=== PATIENT | female | born 1985 | race Caucasian/White ===

== ENCOUNTER 2017-04-04 07:34 | Inpatient (IN) | payer OTHER ==
[2017-04-04] MEDS ORDERED: Penicillin G Potassium IV* 5,000,000 UNITS in NS 0.9% 100 ML* 100 ML IVPB ONE (08:44)
[2017-04-04] MEDS ORDERED: Oxytocin in LR* 20 UNITS/1,000 ML BAG IVPB SCH ×2 (09:00→22:00)
[2017-04-04] MEDS ORDERED: Buffered Lidocaine 0.9% SYRIN* 5 ML/SYR SYRINGE ONE (09:24)
[2017-04-04] MEDS ORDERED: Calcium Carbonate CHEW TAB* 500 MG (TUMS) PO PRN (09:37)
[2017-04-04 10:17] LABS: Hematocrit 37 % (35-47); Hemoglobin 12.7 g/dl (12.0-16.0); Mean Corpuscular HGB Conc 35 g/dl (31-36); Mean Corpuscular Hemoglobin 32 pg (27-31); Mean Corpuscular Volume 93 fL (80-97); Mean Platelet Volume 9 um3 (7.4-10.4); Platelet Count 254 10^3/ul (150-450); Red Blood Count 3.93 10^6/ul (4.0-5.4); Red Cell Distribution Width 15 % (10.5-15); White Blood Count 10.5 10^3/ul (3.5-10.8)
[2017-04-04 10:53] LABS: ABS Basophils 0.1 10^3/ul (0-0.2); ABS Eosinophils 0.1 10^3/ul (0-0.6); ABS Monocytes 0.9 10^3/ul (0-0.8); ABS Neutrophils 7.6 10^3/ul (1.5-7.7); ABS Nucleated RBC 0 10^3/ul; Eosinophil % 0.5 % (0-6); Lymphocyte % 18.7 % (25-47); Nucleated Red Blood Cells % 0.1
[2017-04-04] MEDS: Penicillin G Potassium IV* 2,500,000 UNITS in NS 0.9% 100 ML* 100 ML IVPB SCH ×3 (11:18→18:02)
[2017-04-04] MEDS ORDERED: OBEPIDURAL* 250 ML EPIDURAL ONE (20:07)
[2017-04-04] MEDS ORDERED: Phenylephrine IV* 40 MCG/ML 10 ML SYRINGE IV PUSH PRN ×2 (20:43)
[2017-04-04] MEDS ORDERED: Sodium Citrate/Citric Acid* 15 ML UDC PO PRN (20:43)
[2017-04-04] MEDS ORDERED: OBEPIDURAL* 250 ML EPIDURAL SCH (21:00)
[2017-04-04] MEDS: Methylergonovine INJ* 0.2 MG/ML 1ML AMP IM ONE ×2 (21:44→22:37)
[2017-04-04] MEDS ORDERED: Glycerin ADULT SUPP PR PRN (21:55)
[2017-04-04] MEDS ORDERED: Dibucaine 1% 28.35 GM TUBE PR PRN (21:55)
[2017-04-04] MEDS ORDERED: Witch Hazel PAD* JAR TOPICAL PRN (21:55)
[2017-04-04] MEDS ORDERED: Misoprostol TAB* 200 MCG PR ONE (21:55)
[2017-04-04] MEDS ORDERED: Acetaminophen TAB* 325 MG PO PRN (21:55)
[2017-04-04] MEDS ORDERED: Tranexamic Acid 1,000 MG/10 ML SDV IV ONE (23:00)
[2017-04-05 07:38] LABS: ABS Basophils 0 10^3/ul (0-0.2); ABS Eosinophils 0.1 10^3/ul (0-0.6); ABS Monocytes 1.2 10^3/ul (0-0.8); ABS Neutrophils 11.4 10^3/ul (1.5-7.7); ABS Nucleated RBC 0 10^3/ul; Eosinophil % 0.4 % (0-6); Hematocrit 31 % (35-47); Hemoglobin 10.6 g/dl (12.0-16.0); Lymphocyte % 13.8 % (25-47); Mean Corpuscular HGB Conc 35 g/dl (31-36); Mean Corpuscular Hemoglobin 32 pg (27-31); Mean Corpuscular Volume 94 fL (80-97); Mean Platelet Volume 8 um3 (7.4-10.4); Nucleated Red Blood Cells % 0; Platelet Count 208 10^3/ul (150-450); Red Blood Count 3.28 10^6/ul (4.0-5.4); Red Cell Distribution Width 14 % (10.5-15); White Blood Count 14.7 10^3/ul (3.5-10.8)
[2017-04-05] MEDS: Ibuprofen TAB* 600 MG PO PRN ×3 (07:58→22:42)
[2017-04-05] MEDS: Docusate CAP* 100 MG PO SCH ×3 (07:58→22:42)
[2017-04-05] MEDS ORDERED: Simethicone TAB* 80 MG TAB.CHEW PO SCH (08:30)
[2017-04-05] MEDS ORDERED: Ferrous Gluconate TAB* 324 MG TAB PO SCH (09:00)
[2017-04-06 08:05] VITALS: BP 107/73
[2017-04-06] MEDS: Docusate CAP* 100 MG PO SCH (08:48)
== END 2017-04-06 11:45 | disposition home or self-care (01) | DRG 774 ==
LOC: MCHOBOUT 07:34 → MCHOB 08:44
PROVIDERS: ADMIT Obstetrics & Gynecology; ATTEND Obstetrics & Gynecology
PROC: 10907ZC Drainage of Amniotic Fluid, Therapeutic from Products of Conception, Via Natural or Artificial Opening (ICD-10-PCS; principal; 2017-04-04)
PROC: 10E0XZZ Delivery of Products of Conception, External Approach (ICD-10-PCS; 2017-04-04)
PROC: 3E0P7VZ Introduction of Hormone into Female Reproductive, Via Natural or Artificial Opening (ICD-10-PCS; 2017-04-04)
PROC: 3E033VJ Introduction of Other Hormone into Peripheral Vein, Percutaneous Approach (ICD-10-PCS; 2017-04-04)
PROC: 4A1HXCZ Monitoring of Products of Conception, Cardiac Rate, External Approach (ICD-10-PCS; 2017-04-04)
PROC: 0UC97ZZ Extirpation of Matter from Uterus, Via Natural or Artificial Opening (ICD-10-PCS; 2017-04-04)
DX: O98.52 Other viral diseases complicating childbirth (principal); O88.22 Thromboembolism in childbirth; O99.824 Streptococcus B carrier state complicating childbirth; B00.9 Herpesviral infection, unspecified; Z3A.39 39 weeks gestation of pregnancy; Z37.0 Single live birth
CPT/HCPCS: 36415; 85025; 86850; 86900; 86901; A9270-GY; J2210; J2540

== ENCOUNTER 2017-04-09 12:18 | Emergency (ER) | payer OTHER ==
[2017-04-09 13:03] LABS: ABS Basophils 0.1 10^3/ul (0-0.2); ABS Eosinophils 0.2 10^3/ul (0-0.6); ABS Lymphocytes 1.7 10^3/ul (1.0-4.8); ABS Monocytes 0.5 10^3/ul (0-0.8); ABS Neutrophils 6.1 10^3/ul (1.5-7.7); ABS Nucleated RBC 0 10^3/ul; Eosinophil % 2.8 % (0-6); Hematocrit 32 % (35-47); Hemoglobin 10.7 g/dl (12.0-16.0); Lymphocyte % 19.9 % (25-47); Mean Corpuscular HGB Conc 34 g/dl (31-36); Mean Corpuscular Hemoglobin 32 pg (27-31); Mean Corpuscular Volume 94 fL (80-97); Mean Platelet Volume 7 um3 (7.4-10.4); Nucleated Red Blood Cells % 0; Platelet Count 352 10^3/ul (150-450); Red Blood Count 3.36 10^6/ul (4.0-5.4); Red Cell Distribution Width 15 % (10.5-15); White Blood Count 8.6 10^3/ul (3.5-10.8)
[2017-04-09 13:14] LABS: INR 0.89 (0.77-1.02)
--- NOTE | 2017-04-09 13:47 | RAD ---
HISTORY: Left lower extremity swelling and pain COMPARISONS: None relevant TECHNIQUE: Multiple transverse and longitudinal ultrasound images were obtained of the left lower extremity from the level of the common femoral vein inferiorly through to the infrapopliteal veins using grayscale, color Doppler, and spectral Doppler imaging with and without compression and with augmentation. Comparison images were obtained of the contralateral common femoral vein. FINDINGS: VEINS: The venous system of the left lower extremity is compressible throughout its course, with normal flow on color Doppler imaging and normal response to augmentation on spectral Doppler imaging. SOFT TISSUES: There are thrombosed subcutaneous varices OTHER FINDINGS: None. IMPRESSION: 1. NO LEFT LOWER EXTREMITY DEEP VEIN THROMBOSIS 2. THROMBOSED SUBCUTANEOUS VARICES
[2017-04-09 14:11] VITALS: BP 119/71
--- NOTE | 2017-04-10 17:06 | ED ---
Javier English Nikita, scribed for Mio Mendez MD on 04/09/17 at 1303 . Lower Extremity - HPI Summary HPI Summary: This patient is a 32 year old F presenting to ED with a chief complaint of LE edema since 3 days ago. The CC is described by worsening since onset. The pt is 5 days ago and she fell a few days before having her baby. The patient rates the pain 2/10 in severity. Symptoms aggravated and alleviated by nothing. Patient reports left calf pain, firmness, and erythema. - History of Current Complaint Chief Complaint: EDExtremityLower Stated Complaint: LT CALF PAIN Time Seen by Provider: 04/09/17 12:28 Hx Obtained From: Patient Onset of Pain: Days Onset/Duration: Still Present Severity Currently: Mild Pain Intensity: 2 Pain Scale Used: 0-10 Numeric Timing: Constant, Lasting Days Location: Is Discrete @ - left calf Associated Signs And Symptoms: Positive: Other - Patient reports left calf pain , firmness, and erythema. Aggravating Factor(s): Nothing Alleviating Factor(s): Nothing - Allergies/Home Medications Allergies/Adverse Reactions: Allergies Allergy/AdvReac Type Severity Reaction Status Date / Time No Known Allergies Allergy Verified 04/09/17 12:39 PMH/Surg Hx/FS Hx/Imm Hx Endocrine/Hematology History: Denies: Hx Diabetes Cardiovascular History: Denies: Hx Hypertension Psychiatric History: Reports: Hx Anxiety Infectious Disease History: Yes Infectious Disease History: Denies: Traveled Outside the [place] in Last 30 Days - Family History Known Family History: Negative: Hypertension, Diabetes - Social History Alcohol Use: None Substance Use Type: Reports: None Smoking Status (MU): Never Smoked Tobacco Review of Systems Negative: Fever Positive: Edema - left calf, Other - Patient reports left calf pain, firmness, and erythema. All Other Systems Reviewed And Are Negative: Yes Physical Exam - Summary Physical Exam Summary: VITAL SIGNS: Reviewed. GENERAL: ~Patient is a well-developed and nourished ( FEMALE) who is lying comfortable in the stretcher. ~Patient is not in any acute respiratory distress. HEAD AND FACE: No signs of trauma. ~No ecchymosis, hematomas or skull depressions. No sinus tenderness. EYES: PERRLA, EOMI x 2, No injected conjunctiva, no nystagmus. EARS: Hearing grossly intact. Ear canals and tympanic membranes are within normal limits. MOUTH: Oropharynx within normal limits. NECK: Supple, trachea is midline, no adenopathy, no JVD, no carotid bruit, no c- spine tenderness, neck with full ROM. CHEST: Symmetric, no tenderness at palpation LUNGS: Clear to auscultation bilaterally. No wheezing or crackles. CVS: Regular rate and rhythm, S1 and S2 present, no murmurs or gallops appreciated. ABDOMEN: Soft, non-tender. No signs of distention. No rebound no guarding, and no masses palpated. Bowel sounds are normal. EXTREMITIES: FROM in all major joints, no cyanosis or clubbing. Induration near the varicose vein of left calf. NEURO: Alert and oriented x 3. No acute neurological deficits. Speech is normal and follows commands. SKIN: Dry and warm Triage Information Reviewed: Yes Vital Signs On Initial Exam: Initial Vitals Temp Pulse Resp BP Pulse Ox 98.2 F 87 16 115/82 98 04/09/17 12:32 04/09/17 12:32 04/09/17 12:32 04/09/17 12:32 04/09/17 12:32 Vital Signs Reviewed: Yes Diagnostics - Vital Signs Vital Signs Temp Pulse Resp BP Pulse Ox 04/09/17 12:32 98.2 F 87 16 115/82 98 - Laboratory Lab Results: Lab Results 04/09/17 04/09/17 04/09/17 Range/Units 12:52 12:52 12:52 WBC 8.6 (3.5-10.8) 10^3/ul RBC 3.36 L (4.0-5.4) 10^6/ul Hgb 10.7 L (12.0-16.0) g/dl Hct 32 L (35-47) % MCV 94 (80-97) fL MCH 32 H (27-31) pg MCHC 34 (31-36) g/dl RDW 15 (10.5-15) % Plt Count 352 (150-450) 10^3/ul MPV 7 L (7.4-10.4) um3 Neut % (Auto) 71.1 (38-83) % Lymph % (Auto) 19.9 L (25-47) % Carlton % (Auto) 5.3 (1-9) % Eos % (Auto) 2.8 (0-6) % Baso % (Auto) 0.9 (0-2) % Absolute Neuts (auto) 6.1 (1.5-7.7) 10^3/ul Absolute Lymphs (auto) 1.7 (1.0-4.8) 10^3/ul Absolute Monos (auto) 0.5 (0-0.8) 10^3/ul Absolute Eos (auto) 0.2 (0-0.6) 10^3/ul Absolute Basos (auto) 0.1 (0-0.2) 10^3/ul Absolute Nucleated RBC 0 10^3/ul Nucleated RBC % 0 INR (Anticoag Therapy) 0.89 (0.77-1.02) Sodium 136 (133-145) mmol/L Potassium 3.6 (3.5-5.0) mmol/L Chloride 104 (101-111) mmol/L Carbon Dioxide 25 (22-32) mmol/L Anion Gap 7 (2-11) mmol/L BUN 10 (6-24) mg/dL Creatinine 0.94 (0.51-0.95) mg/dL Est GFR ( Amer) 88.8 (>60) Est GFR (Non-Af Amer) 69.0 (>60) BUN/Creatinine Ratio 10.6 (8-20) Glucose 81 (70-100) mg/dL Calcium 8.6 (8.6-10.3) mg/dL Total Bilirubin 0.30 (0.2-1.0) mg/dL AST 33 (13-39) U/L ALT 26 (7-52) U/L Alkaline Phosphatase 165 H (34-104) U/L C-Reactive Protein 27.91 H (< 5.00) mg/L Total Protein 6.1 L (6.4-8.9) g/dL Albumin 3.2 (3.2-5.2) g/dL Globulin 2.9 (2-4) g/dL Albumin/Globulin Ratio 1.1 (1-3) Result Diagrams: 04/09/17 12:52 04/09/17 12:52 Lab Statement: Any lab studies that have been ordered have been reviewed, and results considered in the medical decision making process. - Ultrasound No standard instances Ultrasound Interpretation Completed By: Radiologist - Venous Doppler study reveals 1. NO LEFT LOWER EXTREMITY DEEP VEIN THROMBOSIS 2. THROMBOSED SUBCUTANEOUS VARICES ED physician has reviewed this radiology report. Lower Extremity Course/Dx - Course Assessment/Plan: This patient is a 32 year old F presenting to ED with a chief complaint of LE edema since 3 days ago. Pt will be discharged with superficial thrombophlebitis. The US was negative for DVT, the pt will take ASA and follow up with PCP within 3 days. Pt is instructed to ice and elevate her legs and take medication as indicated. The pt is hemodynamically stable, alert and oriented x3. - Diagnoses Differential Diagnosis/HQI/PQRI: Positive: Other - superficial thrombophlebitis Provider Diagnoses: Superficial thrombophlebitis Discharge - Discharge Plan Condition: Stable Disposition: HOME Patient Education Materials: Superficial Thrombophlebitis (ED) Referrals: Deana Kidd MD [Primary Care Provider] - 3 Days Additional Instructions: Ice and elevate your leg. Take the medication as indicated. RETURN IF WORSENING CONDITIONS OR SYMPTOMS OCCUR. The documentation as recorded by the Javier farr Nikita accurately reflects the service I personally performed and the decisions made by Andrea sharma Walter, MD.
== END 2017-04-09 14:10 | disposition home or self-care (01) ==
LOC: ED 12:18
DX: I82.402 Acute embolism and thrombosis of unspecified deep veins of left lower extremity (principal); M79.605 Pain in left leg
CPT/HCPCS: 36415; 80053; 85025; 85610; 86140; 99282